=== PATIENT | female | born 1995 | race Caucasian/White ===

== ENCOUNTER 2022-04-01 02:58 | Inpatient (IN) | payer MEDICAID ==
[2022-04-01] MEDS ORDERED: LACTATED RINGERS 1,000 ML ONE (04:31)
[2022-04-01] MEDS ORDERED: OXYTOCIN DRIP 30,000 MILLIUNITS/500 ML BAG IV ONE (04:31)
[2022-04-01] MEDS ORDERED: METHYLERGONOVINE MALEATE 0.2 MG/ML VIAL IM PRN (04:34)
[2022-04-01] MEDS ORDERED: LIDOCAINE (2%) 20 MG/1 ML VIAL 20 ML MDV INFILTRATI ONE (04:34)
[2022-04-01] MEDS ORDERED: BUTORPHANOL 2 MG/1 ML INJ IV PRN (04:34)
[2022-04-01] MEDS ORDERED: MINERAL OIL 30 ML ORAL LIQD PO PRN (04:34)
[2022-04-01] MEDS ORDERED: CARBOPROST TROMETHAMINE 250 MCG/1 ML INJ IM PRN (04:34)
[2022-04-01] MEDS ORDERED: miSOPROStol 200 MCG TAB PR PRN (04:34)
[2022-04-01] MEDS ORDERED: OXYTOCIN 10 UNIT/1 ML INJ IM PRN (04:34)
[2022-04-01] MEDS ORDERED: TERBUTALINE 1 MG/1 ML INJ SUB-Q PRN (04:34)
[2022-04-01] MEDS ORDERED: ePHEDrine SULFATE 50 MG/1 ML INJ IV PRN (04:34)
[2022-04-01] MEDS ORDERED: LOPERAMIDE 2 MG CAP PO PRN (04:34)
[2022-04-01] MEDS ORDERED: ACETAMINOPHEN 325 MG TAB PO PRN (04:34)
[2022-04-01] MEDS ORDERED: LACTATED RINGERS 1,000 ML IV SCH (04:45)
[2022-04-01 04:56] LABS: Hematocrit 39.3 % (30.3-42.9); Hemoglobin 13.3 gm/dl (10.1-14.3); Mean Corpuscular HGB Conc 34 % (30-34); Mean Corpuscular Volume 89 fl (79-97); Platelet Count 138 K/mm3 (140-440); Red Blood Count 4.41 M/mm3 (3.65-5.03); Red Cell Distribution Width 14.3 % (13.2-15.2)
[2022-04-01] MEDS ORDERED: OXYTOCIN DRIP 30 UNITS/500 ML BAG IV SCH ×2 (05:00→08:44)
--- NOTE | 2022-04-01 06:45 | History and Physical Report ---
History of Present Illness Date of examination: 04/01/22 Date of admission: 04/01/22 04:35 Chief complaint: Labor History of present illness: UC's started ~8p on 03/31/2022, SROM this am at 0230 Past History - Obstetrical History : 3 Medications and Allergies Allergies Allergy/AdvReac Type Severity Reaction Status Date / Time No Known Allergies Allergy Unverified 03/21/22 01:47 Active Meds: Active Medications Acetaminophen (Acetaminophen 325 Mg Tab) 650 mg PO Q4H PRN PRN Reason: Pain, Mild (1-3) Butorphanol Tartrate (Butorphanol 2 Mg/1 Ml Inj) 1 mg IV Q2H PRN PRN Reason: Pain, Moderate(4-6) LABOR PAIN Carboprost Tromethamine (Carboprost Tromethamine 250 Mcg/1 Ml Inj) 250 mcg IM ONCE PRN PRN Reason: Uterine Bleeding Ephedrine Sulfate (Ephedrine Sulfate 50 Mg/1 Ml Inj) 10 mg IV Q2M PRN PRN Reason: Hypotension Lactated Ringer's (Lactated Ringers) 1,000 mls @ 125 mls/hr IV DIRECT ISABELLA Oxytocin/Sodium Chloride (Pitocin/Ns 30 Unit/500ml) 30 units in 500 mls @ 40 mls/hr IV TITR ISABELLA; Protocol Loperamide HCl (Loperamide 2 Mg Cap) 2 mg PO ONCE PRN PRN Reason: give with Hemabate Methylergonovine Maleate (Methylergonovine Maleate 0.2 Mg/Ml Vial) 0.2 mg IM ONCE PRN PRN Reason: Uterine Bleeding Mineral Oil (Mineral Oil 30 Ml Oral Liqd) 30 ml PO QHS PRN PRN Reason: Constipation Misoprostol (Misoprostol 200 Mcg Tab) 800 mcg AK ONCE PRN PRN Reason: Uterine Bleeding Oxytocin (Oxytocin 10 Unit/1 Ml Inj) 10 unit IM ONCE PRN PRN Reason: Uterine Bleeding Terbutaline Sulfate (Terbutaline 1 Mg/1 Ml Inj) 0.25 mg SUB-Q ONCE PRN PRN Reason: Hyperstimulation/Hypertonicity - Vital Signs Vital signs: Vital Signs Pulse Pulse Ox 74 99 04/01/22 04:15 04/01/22 04:15 Temp Pulse Resp BP Pulse Ox 98.1 F 100 H 113/57 100 04/01/22 04:38 04/01/22 06:42 04/01/22 06:42 04/01/22 06:40 - Physical Exam Breasts: Positive: deferred Lungs: Positive: Normal air movement Abdomen: Positive: soft. Negative: distention, tenderness Genitourinary (Female): Positive: normal external genitalia Vulva: both: normal Uterus: Positive: enlarged Extremities: Positive: normal - Obstetrical FHR: category 2 Uterine Contraction Monitor Mode: External Results Result Diagrams: 04/01/22 04:15 Abnormal lab results 04/01/22 Range/Units 04:15 Plt Count 138 L (140-440) K/mm3 All other labs normal. Assessment and Plan delivered - Patient Problems (1) 41 weeks gestation of Current Visit: Yes Status: Acute (2) Active labor Current Visit: Yes Status: Acute (3) SROM (spontaneous rupture of membranes) Current Visit: Yes Status: Acute
--- NOTE | 2022-04-01 06:51 | Procedure Note ---
OB Delivery Note - Delivery Date of Delivery: 04/01/22 Surgeon: MARIAM BOOKER Estimated blood loss: 200cc - Vaginal Delivery presentation: vertex Delivery position: OA Delivery induction: none Delivery monitor: none Route of delivery: Delivery placenta: spontaneous (intact) Delivery cord: other (body, released after delivery) Episiotomy: none Delivery laceration: other ((L) posterior labia) Anesthesia: none Delivery comments: of viable female . to mother's abdomen. Body cord released after delivery. Cord clamped, cut, and infant handed to L&D RN for evaluation. Spontaneous delivery of placenta, intact, complete, 3 vessels noted. Perineum intact and vagina intact, no cervical lacerations noted. Left posterior labial abrasion hemostatic no repair required. Fundus firm, minimal bleeding noted. Apgars 8, 9. weight 6 lbs 9 oz. Sponges and instruments counted with RN X2 and correct X2. and mother left in stable condition in care of RN. - Infant A at 1 minute: 8 at 5 minutes: 9 Gender: Female (6lbs 9oz)
[2022-04-01] MEDS ORDERED: ONDANSETRON 4 MG/2 ML INJ IV PRN (08:44)
[2022-04-01] MEDS ORDERED: diphenhydrAMINE 25 MG CAP PO PRN (08:44)
[2022-04-01] MEDS ORDERED: ACETAMINOPHEN 500 MG TAB PO PRN (09:12)
[2022-04-01] MEDS: IBUPROFEN 800 MG TAB PO SCH ×3 (09:14→23:42)
[2022-04-01] MEDS ORDERED: SENNOSIDES/DOCUSATE SODIUM 8.6/50 MG TAB PO PRN (10:00)
[2022-04-01] MEDS ORDERED: LANOLIN/ZINC/DIMETHICONE (LANSINOH) 7 GM TP PRN (10:00)
[2022-04-01] MEDS ORDERED: PROMETHAZINE 25 MG TAB PO PRN (10:00)
[2022-04-01] MEDS ORDERED: PROMETHAZINE 25 MG RECT SUPP PR PRN (10:00)
[2022-04-01] MEDS ORDERED: WITCH HAZEL/ GLYCERIN PAD TP PRN (10:00)
[2022-04-01] MEDS ORDERED: DOCUSATE SODIUM 100 MG CAP PO PRN (10:00)
[2022-04-01] MEDS ORDERED: PRENATAL VIT27-FE FUMARATE-FOLIC ACID VIT TAB PO SCH (10:00)
[2022-04-01 20:46] LABS: Hematocrit 38.2 % (30.3-42.9)
[2022-04-01] MEDS ORDERED: MAGNESIUM HYDROXIDE (MOM) ORAL LIQD UDC PO PRN (22:00)
[2022-04-02] MEDS: IBUPROFEN 800 MG TAB PO SCH ×2 (03:00→11:04)
[2022-04-02] MEDS ORDERED: TETANUS,DIPH,PERTUSS(ACELL) VACCINE 0.5 ML SYRINGE IM ONE (06:37)
--- NOTE | 2022-04-02 08:37 | Discharge Summary ---
Providers - Providers Date of Admission: 04/01/22 04:35 Date of discharge: 04/02/22 Attending physician: MARIAM BOOKER 04/01/22 08:44 Consult to [employer] [CONS] Routine Reason For Exam: assistance with , SNS Primary care physician: [employer] Hospitalization Reason for admission: active labor Delivery: Procedure details: see delivery note Episiotomy: other (see delivery note) Laceration: other (see delivery note) Other procedures: none complications: none baby: female Hospital course: Pt admitted in active labor. Pt delivered w/o difficulty. Pp course was not complicated. She will be d/c home today. Condition at discharge: Good Disposition: 01 HOME / SELF CARE / HOMELESS Plan - Provider Discharge Summary Activity: routine, no sex for 6 weeks Diet: other Instructions: other Additional instructions: [] Smoking cessation referral if applicable(refer to patient education folder for contact #) [] Refer to [facility] Booklet Call your doctor immediately for: * Fever > 100.5 * Heavy vaginal bleeding ( >1 pad per hour) * Severe persistent headache * Shortness of breath * Reddened, hot, painful area to leg or breast * Drainage or odor from incision. * Keep incision clean and dry at all times and follow doctor's instructions regarding bathing/showering - Follow up plan Follow up: PRIMARY CARE, [Primary Care Provider] - 7 Days
--- NOTE | 2022-04-02 08:37 | Progress Note ---
Assessment and Plan - Patient Problems (1) SROM (spontaneous rupture of membranes) Current Visit: Yes Status: Acute Plan to address problem: -cont routine pp care -d/c home this pm Subjective - Subjective Date of service: 04/02/22 Principal diagnosis: PPD #1 s/p - Interval history: Pt doing well. She has no questions or c/o this am. STates she did not have care locally prior to delivery. Advised she would be given information to this office to follow up post She expressed understanding. Patient reports: appetite normal, voiding normally, pain well controlled, no dizzy ambulation : doing well, nursing well Objective - Vital Signs Latest vital signs: Vital Signs Temp Pulse Resp BP BP Pulse Ox Pulse Ox 04/02/22 03:00 16 04/02/22 00:42 18 04/02/22 00:24 98.2 F 76 20 115/80 99 04/01/22 23:42 20 04/01/22 20:00 100 04/01/22 18:54 18 04/01/22 17:51 98.5 F 79 18 113/72 99 04/01/22 10:50 98.1 F 79 18 106/60 98 04/01/22 08:43 98.1 F 04/01/22 08:42 92 H 129/68 Intake and Output 04/01/22 04/02/22 04/02/22 22:59 06:59 14:59 Intake Total 840 Output Total 700 Balance 140 Intake: Oral 240 Intake, Free Water 600 Output: Urine 700 Void 700 Other: Total, Intake Amount 240 Total, Output Amount 400 # Voids Void 1 - Exam Breasts: Present: normal Cardiovascular: Present: Normal S1 Lungs: Present: Normal air movement Abdomen: Present: normal appearance, soft, normal bowel sounds. Absent: distention, tenderness Deep Tendon Reflex Grade: Normal +2
[2022-04-02 16:07] VITALS: BP 103/64
== END 2022-04-02 15:15 | disposition home or self-care (01) | DRG 775 ==
LOC: LD 02:58 → TRG 02:58 → APU 02:59 → LD 04:35 → TRG 04:35 → OB 10:52
PROVIDERS: ADMIT Obstetrics & Gynecology; ATTEND Obstetrics & Gynecology
PROC: 10E0XZZ Delivery of Products of Conception, External Approach (ICD-10-PCS; principal; 2022-04-01)
PROC: 3E0234Z Introduction of Serum, Toxoid and Vaccine into Muscle, Percutaneous Approach (ICD-10-PCS; 2022-04-01)
DX: O71.82 Other specified trauma to perineum and vulva (principal); Z3A.41 41 weeks gestation of pregnancy; Z37.0 Single live birth; Z20.822 Contact with and (suspected) exposure to COVID-19
CPT/HCPCS: 36415; 85014; 85018; 85027; 86592; 86850; 86900; 86901; 87806; G0378; U0003